=== PATIENT | female | born 1990 | race African-American/Black ===

== ENCOUNTER 2024-11-16 12:41 | Emergency (ER) | payer MEDICAID, SELFPAY ==
--- NOTE | ~2024-11-16 | XR_ITS ---
XR chest 2V DATE: 11/16/2024 14:04 INDICATION: Palpitations TECHNIQUE: PA and lateral views COMPARISON: None FINDINGS: Normal heart size. No hilar or mediastinal enlargement. No pulmonary infiltrate or consolid ation, pleural effusion or pulmonary vascular congestion or pneumothorax is detected. Minimal upper thoracic levoscoliosis, mild mid and lower thoracic dextroscoliosis. IMPRESSION: No active cardiopulmonary disease Reviewed, dictated and finalized at location [facility]
[2024-11-16 12:38] VITALS: BP 137/104; PULSE 120; RESP 20; O2SAT 100
[2024-11-16 12:46] VITALS: BP 129/93; PULSE 117; RESP 18; TEMP 36.6; O2SAT 100
--- NOTE | 2024-11-16 13:20 | ECG_ITS ---
Test Date: 2024-11-16 12:41:04 Measurements Intervals [place] Rate: 120 P: 72 VA: 132 QRS: 44 QRSD: 90 T: -3 QT: 339 QTc: 480 Interpretive Statements SINUS TACHYCARDIA LOW QRS VOLTAGE IN PRECORDIAL LEADS [QRS DEFLECTION < 1.0 mV IN CHEST LEADS] NONSPECIFIC ST & T-WAVE ABNORMALITY ABNORMAL RHYTHM ECG No previous ECG available for comparison Electronically Signed On 11-17-2024 10:23:30 AQUATICS MANAGER by Austin Davidson M.D.
[2024-11-16] MEDS: SODIUM CHLORIDE 0.9% IV 1,000 ML 999 ML IV CONT (13:39)
[2024-11-16 13:40] VITALS: BP 99/71; PULSE 82; RESP 18; O2SAT 100
[2024-11-16 13:41] LABS: Basophils Percent Auto 0.7 % (0.2-1.2); Eosinophils Absolute Auto 0.1 K/mm3 (0-0.3); Eosinophils Percent Auto 1.2 % (0-4.4); Hematocrit 40.2 % (37.0-47.0); Hemoglobin 13.5 g/dL (12.0-15.0); Lymphocytes Percent Auto 37.2 % (18.3-44.2); Mean Corpuscular HGB Conc 33.6 g/dl (32-36); Mean Corpuscular Hemoglobin 31.6 pg (26-34); Mean Corpuscular Volume 94.1 fl (80-100); Mean Platelet Volume 9.9 fl (7.4-10.4); Monocytes Absolute Auto 0.3 K/mm3 (0.1-0.6); Monocytes Percent Auto 8.2 % (2.6-8.5); Neutrophils Absolute Auto 2.1 K/mm3 (1.3-6.7); Neutrophils Percent Auto 52.7 % (45.5-73.1); Platelet Count Result 223 k/mm3 (150-375); Red Blood Count 4.27 M/mm3 (4.2-5.4)
[2024-11-16 14:02] LABS: Alanine Aminotransferase 15 U/L (6-35); Albumin Level 4.7 g/dL (3.5-5.1); Alkaline Phosphatase 53 U/L (38-126); Anion Gap 5 mmol/L (4-12); Aspartate Amino Transferase 33 U/L (14-36); Bilirubin,Total 0.8 mg/dL (0.2-1.3); Blood Urea Nitrogen 10 mg/dL (7-17); Calcium 9.2 mg/dL (8.4-10.2); Carbon Dioxide 26 mmol/L (22-30); Chloride 107 mmol/L (98-107); Estimated CRCL calculation 92 ml/min; Estimated Glomerular Filt Rate > 60; Glucose 83 mg/dL (65-110); Sodium 138 mmol/L (137-145)
--- NOTE | 2024-11-16 14:45 | ED.GENADULT ---
HPI - General Adult General Chief complaint: Anxiety Stated complaint: smoked MJ History of Present Illness HPI narrative: Patient is a 34-year-old female who presents ER with anxiety. She was smoking a blunt of new marijuana she got from the dispensary when she began to feel very anxious and like her heart was racing. Listed not happen to her before and she felt something was wrong. No fevers or chills or sweats. No vomiting. Arrived by EMS. Related Data Allergies Allergy/AdvReac Type Severity Reaction Status Date / Time No Known Allergies Allergy Verified 11/16/24 12:47 Review of Systems Review of Systems: All systems reviewed & are unremarkable except as noted in HPI and below Constitutional: Constitutional: Reports no additional constitutional complaints ENT: Reports system reviewed and no additional complaints, except as documented Cardiovascular: Cardiovascular: Reports no additional cardiovascular complaints Respiratory: Respiratory: Reports no additional respiratory complaints Gastrointestinal: Gastrointestinal: Reports no additional gastrointestinal complaints Psychiatric: Psychiatric: Reports anxiety and Denies depression PMFSH Past Medical History Medical History (Updated 11/16/24 @ 14:57 by Eduardo Mei MD) Healthy female adult Social History Social History Substance use type: marijuana Exam Narrative: GENERAL: Well-appearing, well-nourished, and in no acute distress. HEAD: Normocephalic, atraumatic. ENT: Mucous membranes moist. CHEST: Clear to auscultation. No respiratory distress. HEART: tachycardic regular. Normal peripheral pulses. ABDOMEN: Soft, nontender, nondistended. EXTREMITIES: Normal range of motion. No edema. SKIN: Warm, dry, no rash. NEURO: Alert and oriented x3. PSYCH: Normal mood and affect. Course Course Emergency Course: Patient resting comfortably. No longer anxious and tachycardia resolved. Appropriate for discharge home. Vital Signs Vital signs: Vital Signs Pulse Rate 120 H 11/16/24 12:38 Respiratory Rate 20 11/16/24 12:38 Blood Pressure 137/104 H 11/16/24 12:38 Pulse Oximetry 100 11/16/24 12:38 Oxygen Delivery Room Air 11/16/24 12:38 Temperature 97.9 F 11/16/24 12:46 Pulse Rate 82 11/16/24 13:40 Respiratory Rate 18 11/16/24 13:40 Blood Pressure 99/71 L 11/16/24 13:40 Pulse Oximetry 100 11/16/24 13:40 Oxygen Delivery Room Air 11/16/24 12:38 Medical Decision Making Vital Signs Vital Signs: Vital Signs Pulse Rate 120 H 11/16/24 12:38 Respiratory Rate 20 11/16/24 12:38 Blood Pressure 137/104 H 11/16/24 12:38 Pulse Oximetry 100 11/16/24 12:38 Oxygen Delivery Room Air 11/16/24 12:38 Temperature 97.9 F 11/16/24 12:46 Pulse Rate 82 11/16/24 13:40 Respiratory Rate 18 11/16/24 13:40 Blood Pressure 99/71 L 11/16/24 13:40 Pulse Oximetry 100 11/16/24 13:40 Oxygen Delivery Room Air 11/16/24 12:38 Lab Data 11/16/24 13:37 11/16/24 13:37 Labs: Lab Results 11/16/24 Range/Units 13:37 WBC 4.0 L (4.5-10.0) K/mm3 RBC 4.27 (4.2-5.4) M/mm3 Hgb 13.5 (12.0-15.0) g/dL Hct 40.2 (37.0-47.0) % MCV 94.1 (80-100) fl MCH 31.6 (26-34) pg MCHC 33.6 (32-36) g/dl RDW 13.0 (11.5-14.5) % Plt Count 223 (150-375) k/mm3 MPV 9.9 (7.4-10.4) fl Immature Gran % (Auto) 0.0 (0-0.5) % Neut % (Auto) 52.7 (45.5-73.1) % Lymph % (Auto) 37.2 (18.3-44.2) % [place] % (Auto) 8.2 (2.6-8.5) % Eos % (Auto) 1.2 (0-4.4) % Baso % (Auto) 0.7 (0.2-1.2) % Lymph # (Auto) 1.50 (0.9-3.2) K/mm3 [place] # (Auto) 0.3 (0.1-0.6) K/mm3 Eos # (Auto) 0.1 (0-0.3) K/mm3 Baso # (Auto) 0.0 (0.0-0.1) K/mm3 Abs Immat Gran (auto) 0.00 (0.00-0.031) K/mm3 Absolute Neuts (auto) 2.1 (1.3-6.7) K/mm3 Absolute Nucleated RBC 0.000 (0.0-0.012) K/mm3 Nucleated RBC % 0.0 (0.0-0.2) % Sodium 138 (137-145) mmol/L Potassium 4.0 (3.4-5.0) mmol/L Chloride 107 (98-107) mmol/L Carbon Dioxide 26 (22-30) mmol/L Anion Gap 5 (4-12) mmol/L BUN 10 (7-17) mg/dL Creatinine 0.70 (0.7-1.0) mg/dL Estim Creat Clear Calc 92 ml/min Estimated GFR > 60 (59 - ) Glucose 83 (65-110) mg/dL Calcium 9.2 (8.4-10.2) mg/dL Total Bilirubin 0.8 (0.2-1.3) mg/dL AST 33 (14-36) U/L ALT 15 (6-35) U/L Alkaline Phosphatase 53 (38-126) U/L Total Protein 8.0 (6.3-8.2) g/dL Albumin 4.7 (3.5-5.1) g/dL Imaging Data Radiologist's impression: ITS Impressions Chest X-Ray 11/16/24 14:09 IMPRESSION: No active cardiopulmonary disease ECG Data EKG #1: ECG completion date: 11/16/24 ECG completion time: 12:41 EKG Interpretation: tachycardia (120), sinus rhythm, non-specific ST changes, normal QRS, normal QT and NL axis Discharge Plan 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 Please call your doctor for a follow up appointment to determine the need for further testing. Patient Language: Syriac Follow-up/Referrals: Cristóbal Montana MD [Physician] - 1 Week PHYSICIAN,PATIENT ACCOUNTS COORDINATOR [Primary Care Provider] -
[2024-11-16 15:29] VITALS: BP 100/69; PULSE 72; RESP 17; O2SAT 100
== END 2024-11-16 15:32 | disposition home or self-care (01) ==
PROVIDERS: Emergency Provider Emergency Medicine
DX: F12.980 Cannabis use, unspecified with anxiety disorder (principal)
CPT/HCPCS: 36415; 71046; 80053; 85025; 93005; 96360; 99283; J7030